=== PATIENT | male | born 1965 | race Caucasian/White ===

== ENCOUNTER 2017-08-13 16:16 | Inpatient (IN) | payer OTHER ==
[2017-08-13] MEDS ORDERED: ONDANSETRON 4 MG INJ IV (16:30)
[2017-08-13] MEDS ORDERED: ACETAMINOPHEN 325 MG TAB PO (16:30)
[2017-08-13] MEDS: morphine 4 MG/ML VIAL IV (16:44)
[2017-08-13] MEDS: ONDANSETRON 4 MG INJ IV (16:44)
[2017-08-13] MEDS ORDERED: VANCOMYCIN IV PER PHARMACY XX (17:30)
[2017-08-13] MEDS ORDERED: NACL 0.9% 3 ML SYG IV (17:30)
[2017-08-13 17:50] LABS: ADD MAN DIFF? NO
[2017-08-13] MEDS: PIPER-TAZO 3.375 GM IV (PMX) 100 ML IVPB (17:51)
[2017-08-13 17:53] LABS: WHITE BLOOD COUNT 8.7 10^3/ul (4.8-10.8)
[2017-08-13 17:53] LABS: BASOPHIL # 0.1 10^3/ul (0.0-0.1); BASOPHILS % 0.6 % (0.0-2.0); EOSINOPHILS # 0.3 10^3/ul (0.0-0.5); EOSINOPHILS % 3.7 % (0.0-7.0); HEMATOCRIT 38.5 % (42.0-52.0); HEMOGLOBIN 12.7 g/dl (14.0-18.0); LYMPHOCYTES # 2.1 10^3/ul (0.8-2.9); LYMPHOCYTES % 24.7 % (15.0-51.0); MEAN CORPUSCULAR HEMOGLOBIN 29.5 pg (29.0-33.0); MEAN CORPUSCULAR VOLUME 89.3 fl (82.0-101.0); MONOCYTE # 1.5 10^3/ul (0.3-0.9); NEUTROPHIL # 4.6 10^3/ul (1.6-7.5); NEUTROPHILS % 53.7 % (39.0-77.0); PLATELET COUNT 459 10^3/UL (140-415); RED BLOOD COUNT 4.31 10^6/ul (4.70-6.10); RED CELL DISTRIBUTION WIDTH 16.1 % (11.5-14.5)
[2017-08-13 18:15] LABS: ALANINE AMINOTRANSFERASE 28 IU/L (13-69); ALBUMIN 3.2 g/dl (3.3-4.9); ALKALINE PHOSPHATASE 79 IU/L (42-121); ANION GAP 12 (8-16); ASPARTATE AMINO TRANSFERASE 37 IU/L (15-46); BILIRUBIN,INDIRECT 0.3 mg/dl (0-1.1); BILIRUBIN,TOTAL 0.3 mg/dl (0.2-1.3); BLOOD UREA NITROGEN 15 mg/dl (7-20); CALCIUM 8.4 mg/dl (8.4-10.2); CARBON DIOXIDE 30 mmol/L (21-31); CHLORIDE 102 mmol/L (97-110); CREATININE 1.02 mg/dl (0.61-1.24); GLUCOSE 102 mg/dl (70-220); POTASSIUM 4.1 mmol/L (3.5-5.1); SODIUM 140 mmol/L (135-144); TOTAL PROTEIN 8.5 g/dl (6.1-8.1)
[2017-08-13 18:18] LABS: C-REACTIVE PROTEIN 4.1 mg/dl (0.0-0.9)
[2017-08-13] MEDS ORDERED: VANCOMYCIN 2 GM in DEXTROSE 5% 500 ML IVPB (18:30)
[2017-08-13 18:59] LABS: ERYTHROCYTE SEDIMENTATION RATE 33 mm/Hr (0-20)
[2017-08-13] MEDS ORDERED: SOD CHLORIDE 0.9% 100 ML (20:39)
[2017-08-13] MEDS ORDERED: IODIXANOL LOCM 100 ML BTL (20:39)
[2017-08-13] MEDS: GABAPENTIN 300 MG CAP PO (21:34)
[2017-08-13] MEDS: VANCOMYCIN 2 GM in SOD CHLORIDE 0.9% 500 ML IVPB (21:35)
[2017-08-13] MEDS: morphine 2 MG INJ IV (23:01)
[2017-08-14] MEDS ORDERED: PENDING SANTYL ORDER FOR WOUND CARE XX (00:30)
[2017-08-14] MEDS: PIPER-TAZO 3.375 GM IV (PMX) 100 ML IVPB ×4 (01:58→18:52)
[2017-08-14] MEDS ORDERED: COLLAGENASE 30 GM TUBE TOP (03:30)
[2017-08-14] MEDS: VANCOMYCIN 2 GM in SOD CHLORIDE 0.9% 500 ML IVPB ×2 (06:39→19:53)
[2017-08-14 06:49] LABS: ADD MAN DIFF? NO
[2017-08-14 06:53] LABS: BASOPHILS % 0.5 % (0.0-2.0); EOSINOPHILS # 0.4 10^3/ul (0.0-0.5); EOSINOPHILS % 4.2 % (0.0-7.0); MEAN CORPUSCULAR HEMOGLOBIN 29.3 pg (29.0-33.0); MEAN CORPUSCULAR HGB CONC 32.5 g/dl (32.0-37.0); MEAN CORPUSCULAR VOLUME 90.1 fl (82.0-101.0); MEAN PLATELET VOLUME 10.1 fl (7.4-10.4); MONOCYTE # 1.4 10^3/ul (0.3-0.9); NEUTROPHIL # 4.6 10^3/ul (1.6-7.5); NEUTROPHILS % 54.6 % (39.0-77.0); PLATELET COUNT 452 10^3/UL (140-415); RED BLOOD COUNT 4.44 10^6/ul (4.70-6.10); RED CELL DISTRIBUTION WIDTH 16.4 % (11.5-14.5)
[2017-08-14 06:53] LABS: WHITE BLOOD COUNT 8.4 10^3/ul (4.8-10.8)
[2017-08-14 07:04] LABS: MONOCYTES % 16.5 % (0.0-11.0)
[2017-08-14 07:07] LABS: ALANINE AMINOTRANSFERASE 29 IU/L (13-69); ALBUMIN 3.3 g/dl (3.3-4.9); ALKALINE PHOSPHATASE 81 IU/L (42-121); ANION GAP 14 (8-16); ASPARTATE AMINO TRANSFERASE 35 IU/L (15-46); BILIRUBIN,INDIRECT 0.4 mg/dl (0-1.1); BILIRUBIN,TOTAL 0.4 mg/dl (0.2-1.3); BLOOD UREA NITROGEN 13 mg/dl (7-20); CALCIUM 8.7 mg/dl (8.4-10.2); CARBON DIOXIDE 29 mmol/L (21-31); CHLORIDE 103 mmol/L (97-110); CREATININE 0.93 mg/dl (0.61-1.24); GLUCOSE 102 mg/dl (70-220); POTASSIUM 4.5 mmol/L (3.5-5.1); SODIUM 141 mmol/L (135-144); TOTAL PROTEIN 8.8 g/dl (6.1-8.1)
[2017-08-14] MEDS: GABAPENTIN 300 MG CAP PO ×2 (11:19→21:35)
[2017-08-14] MEDS: AMLODIPINE 10 MG TAB PO (11:19)
[2017-08-14] MEDS: LISINOPRIL 20 MG TAB PO (11:20)
[2017-08-14] MEDS: COLLAGENASE 30 GM TUBE TOP (11:21)
[2017-08-14] MEDS: ENOXAPARIN 40 MG/0.4 ML SYG SC (11:22)
[2017-08-14] MEDS: morphine 2 MG INJ IV ×2 (11:52→19:11)
[2017-08-14] MEDS: FUROSEMIDE 20 MG TAB PO (16:54)
[2017-08-15] MEDS: PIPER-TAZO 3.375 GM IV (PMX) 100 ML IVPB ×4 (00:45→18:48)
[2017-08-15] MEDS: morphine 2 MG INJ IV ×3 (00:50→22:46)
[2017-08-15] MEDS: VANCOMYCIN 2 GM in SOD CHLORIDE 0.9% 500 ML IVPB ×2 (06:00→20:17)
[2017-08-15 07:10] LABS: VANCOMYCIN,TROUGH 19.2 ug/ml (10.0-20.0)
[2017-08-15] MEDS: AMLODIPINE 10 MG TAB PO (09:21)
[2017-08-15] MEDS: GABAPENTIN 300 MG CAP PO ×2 (09:22→22:43)
[2017-08-15] MEDS: FUROSEMIDE 20 MG TAB PO (09:22)
[2017-08-15] MEDS: LISINOPRIL 20 MG TAB PO (09:22)
[2017-08-15] MEDS: ENOXAPARIN 40 MG/0.4 ML SYG SC (09:23)
[2017-08-15] MEDS: COLLAGENASE 30 GM TUBE TOP (09:38)
[2017-08-15] MEDS ORDERED: LIDOCAINE 1% (MDV) 20 ML INJ (20:45)
[2017-08-15] MEDS: LIDOCAINE 2% (MDV) 20 ML INJ INJ (21:44)
[2017-08-16] MEDS: PIPER-TAZO 3.375 GM IV (PMX) 100 ML IVPB ×3 (00:59→12:39)
[2017-08-16] MEDS: morphine 2 MG INJ IV ×3 (04:16→21:32)
[2017-08-16] MEDS: VANCOMYCIN 2 GM in SOD CHLORIDE 0.9% 500 ML IVPB (05:40)
[2017-08-16 05:41] LABS: BLOOD UREA NITROGEN 18 mg/dl (7-20)
[2017-08-16 05:41] LABS: CREATININE 0.98 mg/dl (0.61-1.24)
[2017-08-16] MEDS: ENOXAPARIN 40 MG/0.4 ML SYG SC (08:47)
[2017-08-16] MEDS: GABAPENTIN 300 MG CAP PO ×2 (08:47→20:13)
[2017-08-16] MEDS: FUROSEMIDE 20 MG TAB PO (08:48)
[2017-08-16] MEDS: LISINOPRIL 20 MG TAB PO (08:48)
[2017-08-16] MEDS: AMLODIPINE 10 MG TAB PO (08:48)
[2017-08-16] MEDS: COLLAGENASE 30 GM TUBE TOP (08:57)
[2017-08-16] MEDS: DOXYCYCLINE 100 MG TAB PO (20:13)
[2017-08-17] MEDS: morphine 2 MG INJ IV ×4 (03:16→22:16)
[2017-08-17] MEDS: AMLODIPINE 10 MG TAB PO (08:34)
[2017-08-17] MEDS: LISINOPRIL 20 MG TAB PO (08:34)
[2017-08-17] MEDS: FUROSEMIDE 20 MG TAB PO (08:34)
[2017-08-17] MEDS: GABAPENTIN 300 MG CAP PO ×2 (08:34→22:00)
[2017-08-17] MEDS: ENOXAPARIN 40 MG/0.4 ML SYG SC (08:36)
[2017-08-17] MEDS: DOXYCYCLINE 100 MG TAB PO ×2 (08:36→22:00)
[2017-08-17] MEDS: COLLAGENASE 30 GM TUBE TOP (08:41)
[2017-08-18] MEDS: morphine 2 MG INJ IV ×2 (08:24→16:23)
[2017-08-18] MEDS: ENOXAPARIN 40 MG/0.4 ML SYG SC (08:24)
[2017-08-18] MEDS: GABAPENTIN 300 MG CAP PO ×2 (08:25→23:15)
[2017-08-18] MEDS: DOXYCYCLINE 100 MG TAB PO ×2 (08:26→23:16)
[2017-08-18] MEDS: AMLODIPINE 10 MG TAB PO (08:26)
[2017-08-18] MEDS: LISINOPRIL 20 MG TAB PO (08:26)
[2017-08-18] MEDS: FUROSEMIDE 20 MG TAB PO (08:27)
[2017-08-18] MEDS: COLLAGENASE 30 GM TUBE TOP ×2 (08:37→09:00)
[2017-08-18] MEDS: morphine LIQ (10 MG/5 ML) CUP PO (23:20)
[2017-08-19] MEDS: GABAPENTIN 300 MG CAP PO ×2 (08:01→21:05)
[2017-08-19] MEDS: DOXYCYCLINE 100 MG TAB PO ×2 (08:01→21:05)
[2017-08-19] MEDS: FUROSEMIDE 20 MG TAB PO (08:01)
[2017-08-19] MEDS: AMLODIPINE 10 MG TAB PO (08:01)
[2017-08-19] MEDS: LISINOPRIL 20 MG TAB PO (08:01)
[2017-08-19] MEDS: ENOXAPARIN 40 MG/0.4 ML SYG SC (08:03)
[2017-08-19] MEDS: morphine LIQ (10 MG/5 ML) CUP PO ×2 (08:06→14:40)
[2017-08-19] MEDS: COLLAGENASE 30 GM TUBE TOP (09:00)
[2017-08-20] MEDS: AMLODIPINE 10 MG TAB PO (09:09)
[2017-08-20] MEDS: DOXYCYCLINE 100 MG TAB PO (09:09)
[2017-08-20] MEDS: GABAPENTIN 300 MG CAP PO (09:09)
[2017-08-20] MEDS: FUROSEMIDE 20 MG TAB PO (09:09)
[2017-08-20] MEDS: ENOXAPARIN 40 MG/0.4 ML SYG SC (09:10)
[2017-08-20] MEDS: COLLAGENASE 30 GM TUBE TOP (09:10)
[2017-08-20] MEDS: LISINOPRIL 20 MG TAB PO (09:10)
[2017-08-20] MEDS: morphine LIQ (10 MG/5 ML) CUP PO (09:24)
== END 2017-08-20 16:03 | disposition home or self-care (01) | DRG 593 ==
LOC: E/R 16:16 → PP2 16:32
DX: L97.929 Non-pressure chronic ulcer of unspecified part of left lower leg with unspecified severity (principal); L03.116 Cellulitis of left lower limb; L03.115 Cellulitis of right lower limb; L97.919 Non-pressure chronic ulcer of unspecified part of right lower leg with unspecified severity; I83.009 Varicose veins of unspecified lower extremity with ulcer of unspecified site; Z98.890 Other specified postprocedural states; E66.01 Morbid (severe) obesity due to excess calories; Z68.36 Body mass index [BMI] 36.0-36.9, adult; F17.210 Nicotine dependence, cigarettes, uncomplicated; Z87.81 Personal history of (healed) traumatic fracture; I10 Essential (primary) hypertension; M77.51 Other enthesopathy of right foot and ankle
CPT/HCPCS: 73700; 73718; 80053; 80202; 82565; 84520; 85025; 85651; 86140; 87070; 93306; 93922; 93970; 96365; 96375; 97162; 99285-25

== ENCOUNTER 2017-09-16 20:02 | Inpatient (IN) | payer OTHER ==
[2017-09-16] MEDS ORDERED: VANCOMYCIN IV PER PHARMACY XX (23:00)
[2017-09-16] MEDS ORDERED: PENDING SANTYL ORDER FOR WOUND CARE XX (23:30)
[2017-09-17] MEDS ORDERED: ZOLPIDEM 5 MG TAB PO (01:30)
[2017-09-17] MEDS ORDERED: ACETAMINOPHEN 325 MG TAB PO (01:30)
[2017-09-17] MEDS ORDERED: HYDROCODONE/APAP (5/325) TAB PO (01:30)
[2017-09-17] MEDS ORDERED: NACL 0.9% 3 ML SYG IV (01:30)
[2017-09-17] MEDS: VANCOMYCIN 2 GM in SOD CHLORIDE 0.9% 500 ML IVPB (01:45)
[2017-09-17 06:11] LABS: ADD MAN DIFF? NO
[2017-09-17 06:17] LABS: WHITE BLOOD COUNT 9.2 10^3/ul (4.8-10.8)
[2017-09-17 06:17] LABS: BASOPHIL # 0.1 10^3/ul (0.0-0.1); BASOPHILS % 0.8 % (0.0-2.0); EOSINOPHILS # 0.5 10^3/ul (0.0-0.5); EOSINOPHILS % 4.9 % (0.0-7.0); HEMOGLOBIN 13.4 g/dl (14.0-18.0); LYMPHOCYTES # 2.4 10^3/ul (0.8-2.9); LYMPHOCYTES % 26.1 % (15.0-51.0); MEAN CORPUSCULAR HEMOGLOBIN 29.1 pg (29.0-33.0); MEAN CORPUSCULAR HGB CONC 33.5 g/dl (32.0-37.0); MEAN CORPUSCULAR VOLUME 86.8 fl (82.0-101.0); MONOCYTE # 1.2 10^3/ul (0.3-0.9); MONOCYTES % 13.1 % (0.0-11.0); NEUTROPHILS % 54.7 % (39.0-77.0); PLATELET COUNT 548 10^3/UL (140-415); RED BLOOD COUNT 4.61 10^6/ul (4.70-6.10); RED CELL DISTRIBUTION WIDTH 16.9 % (11.5-14.5)
[2017-09-17] MEDS: morphine 2 MG INJ IV ×2 (06:35→21:33)
[2017-09-17 06:36] LABS: HEMOGLOBIN A1C 5.7 % (0-5.9)
[2017-09-17 07:12] LABS: ANION GAP 13 (8-16); BLOOD UREA NITROGEN 15 mg/dl (7-20); CALCIUM 9.3 mg/dl (8.4-10.2); CARBON DIOXIDE 27 mmol/L (21-31); CHLORIDE 105 mmol/L (97-110); CREATININE 0.94 mg/dl (0.61-1.24); GLUCOSE 105 mg/dl (70-220); MAGNESIUM 2.2 mg/dl (1.7-2.5); POTASSIUM 4.8 mmol/L (3.5-5.1); SODIUM 140 mmol/L (135-144)
[2017-09-17] MEDS: COLLAGENASE 30 GM TUBE TOP (09:22)
[2017-09-17] MEDS: GABAPENTIN 300 MG CAP PO ×2 (09:24→21:34)
[2017-09-17] MEDS: LISINOPRIL 20 MG TAB PO (09:25)
[2017-09-17] MEDS: AMLODIPINE 10 MG TAB PO (09:25)
[2017-09-17] MEDS: FUROSEMIDE 20 MG TAB PO (09:26)
[2017-09-17] MEDS: ENOXAPARIN 40 MG/0.4 ML SYG SC (09:30)
[2017-09-17] MEDS: VANCOMYCIN 1.75 GM in SOD CHLORIDE 0.9% 500 ML IVPB (12:20)
[2017-09-18] MEDS: VANCOMYCIN 1.75 GM in SOD CHLORIDE 0.9% 500 ML IVPB ×2 (00:35→12:00)
[2017-09-18] MEDS: AMLODIPINE 10 MG TAB PO (08:22)
[2017-09-18] MEDS: FUROSEMIDE 20 MG TAB PO (08:22)
[2017-09-18] MEDS: GABAPENTIN 300 MG CAP PO ×2 (08:22→20:17)
[2017-09-18] MEDS: LISINOPRIL 20 MG TAB PO (08:23)
[2017-09-18] MEDS: MUPIROCIN 2% 22 GM OINT TOP ×2 (08:24→22:17)
[2017-09-18] MEDS: COLLAGENASE 30 GM TUBE TOP (08:24)
[2017-09-18] MEDS: ENOXAPARIN 40 MG/0.4 ML SYG SC (08:29)
[2017-09-18] MEDS: morphine 2 MG INJ IV ×2 (11:11→18:31)
[2017-09-18 12:25] LABS: VANCOMYCIN,TROUGH 22.5 ug/ml (10.0-20.0)
[2017-09-18] MEDS: VANCOMYCIN 1.25 GM in SOD CHLORIDE 0.9% 250 ML IVPB (20:18)
[2017-09-19] MEDS: VANCOMYCIN 1.25 GM in SOD CHLORIDE 0.9% 250 ML IVPB ×2 (09:42→20:17)
[2017-09-19] MEDS: GABAPENTIN 300 MG CAP PO ×2 (09:42→20:13)
[2017-09-19] MEDS: LISINOPRIL 20 MG TAB PO (09:42)
[2017-09-19] MEDS: AMLODIPINE 10 MG TAB PO (09:42)
[2017-09-19] MEDS: FUROSEMIDE 20 MG TAB PO (09:42)
[2017-09-19] MEDS: ENOXAPARIN 40 MG/0.4 ML SYG SC (09:43)
[2017-09-19] MEDS: COLLAGENASE 30 GM TUBE TOP (09:43)
[2017-09-19] MEDS: MUPIROCIN 2% 22 GM OINT TOP ×2 (09:44→20:15)
[2017-09-19] MEDS: morphine 2 MG INJ IV ×2 (12:54→20:12)
[2017-09-20] MEDS: VANCOMYCIN 1.25 GM in SOD CHLORIDE 0.9% 250 ML IVPB ×2 (09:13→20:44)
[2017-09-20] MEDS: DOCUSATE SODIUM 100 MG CAP PO (09:13)
[2017-09-20] MEDS: ENOXAPARIN 40 MG/0.4 ML SYG SC (09:14)
[2017-09-20] MEDS: GABAPENTIN 300 MG CAP PO ×2 (09:14→20:43)
[2017-09-20] MEDS: COLLAGENASE 30 GM TUBE TOP (09:14)
[2017-09-20] MEDS: LISINOPRIL 20 MG TAB PO (09:15)
[2017-09-20] MEDS: FUROSEMIDE 20 MG TAB PO (09:15)
[2017-09-20] MEDS: AMLODIPINE 10 MG TAB PO (09:16)
[2017-09-20] MEDS: MUPIROCIN 2% 22 GM OINT TOP ×2 (09:16→20:44)
[2017-09-20] MEDS: morphine 2 MG INJ IV ×3 (09:25→23:09)
[2017-09-20 09:43] LABS: BLOOD UREA NITROGEN 24 mg/dl (7-20)
[2017-09-20 09:46] LABS: VANCOMYCIN,TROUGH 14.4 ug/ml (10.0-20.0)
[2017-09-21 06:02] LABS: ADD MAN DIFF? NO
[2017-09-21 06:05] LABS: WHITE BLOOD COUNT 9.1 10^3/ul (4.8-10.8)
[2017-09-21 06:05] LABS: BASOPHIL # 0.1 10^3/ul (0.0-0.1); BASOPHILS % 0.9 % (0.0-2.0); EOSINOPHILS # 0.3 10^3/ul (0.0-0.5); EOSINOPHILS % 3.6 % (0.0-7.0); HEMATOCRIT 47.2 % (42.0-52.0); HEMOGLOBIN 15.3 g/dl (14.0-18.0); LYMPHOCYTES # 2.6 10^3/ul (0.8-2.9); LYMPHOCYTES % 28.8 % (15.0-51.0); MEAN CORPUSCULAR HGB CONC 32.4 g/dl (32.0-37.0); MEAN CORPUSCULAR VOLUME 89.4 fl (82.0-101.0); MEAN PLATELET VOLUME 10.3 fl (7.4-10.4); MONOCYTE # 1.2 10^3/ul (0.3-0.9); NEUTROPHIL # 4.8 10^3/ul (1.6-7.5); NEUTROPHILS % 52.9 % (39.0-77.0); PLATELET COUNT 580 10^3/UL (140-415); RED BLOOD COUNT 5.28 10^6/ul (4.70-6.10); RED CELL DISTRIBUTION WIDTH 17.2 % (11.5-14.5)
[2017-09-21 06:20] LABS: ANION GAP 15 (8-16); BLOOD UREA NITROGEN 24 mg/dl (7-20); CARBON DIOXIDE 27 mmol/L (21-31); CHLORIDE 105 mmol/L (97-110); CREATININE 1.13 mg/dl (0.61-1.24); GLUCOSE 109 mg/dl (70-220); POTASSIUM 4.7 mmol/L (3.5-5.1); SODIUM 142 mmol/L (135-144)
[2017-09-21] MEDS: GABAPENTIN 300 MG CAP PO ×2 (08:38→20:58)
[2017-09-21] MEDS: AMLODIPINE 10 MG TAB PO (08:39)
[2017-09-21] MEDS: LISINOPRIL 20 MG TAB PO (08:39)
[2017-09-21] MEDS: FUROSEMIDE 20 MG TAB PO (08:39)
[2017-09-21] MEDS: MUPIROCIN 2% 22 GM OINT TOP ×2 (08:40→21:00)
[2017-09-21] MEDS: ENOXAPARIN 40 MG/0.4 ML SYG SC (08:40)
[2017-09-21] MEDS: VANCOMYCIN 1.25 GM in SOD CHLORIDE 0.9% 250 ML IVPB ×2 (08:40→20:58)
[2017-09-21] MEDS: COLLAGENASE 30 GM TUBE TOP (08:41)
[2017-09-21] MEDS: morphine 2 MG INJ IV ×3 (17:25→22:44)
[2017-09-22] MEDS: COLLAGENASE 30 GM TUBE TOP (09:00)
[2017-09-22] MEDS: VANCOMYCIN 1.25 GM in SOD CHLORIDE 0.9% 250 ML IVPB ×2 (09:25→20:28)
[2017-09-22] MEDS: LISINOPRIL 20 MG TAB PO (09:25)
[2017-09-22] MEDS: GABAPENTIN 300 MG CAP PO ×2 (09:25→20:28)
[2017-09-22] MEDS: FUROSEMIDE 20 MG TAB PO (09:25)
[2017-09-22] MEDS: AMLODIPINE 10 MG TAB PO (09:25)
[2017-09-22] MEDS: MUPIROCIN 2% 22 GM OINT TOP ×2 (09:26→20:29)
[2017-09-22] MEDS: ENOXAPARIN 40 MG/0.4 ML SYG SC (09:28)
[2017-09-22] MEDS: morphine 2 MG INJ IV ×2 (17:37→23:38)
[2017-09-23] MEDS: GABAPENTIN 300 MG CAP PO ×2 (08:27→22:10)
[2017-09-23] MEDS: ENOXAPARIN 40 MG/0.4 ML SYG SC (08:27)
[2017-09-23] MEDS: AMLODIPINE 10 MG TAB PO (08:27)
[2017-09-23] MEDS: LISINOPRIL 20 MG TAB PO (08:28)
[2017-09-23] MEDS: FUROSEMIDE 20 MG TAB PO (08:28)
[2017-09-23] MEDS: morphine 2 MG INJ IV ×3 (08:33→22:07)
[2017-09-23] MEDS: COLLAGENASE 30 GM TUBE TOP (09:00)
[2017-09-23 09:37] LABS: VANCOMYCIN,TROUGH 15.4 ug/ml (10.0-20.0)
[2017-09-23] MEDS: VANCOMYCIN 1.25 GM in SOD CHLORIDE 0.9% 250 ML IVPB ×2 (10:25→22:21)
[2017-09-23] MEDS: RIFAMPIN 300 MG CAP PO (16:36)
[2017-09-23] MEDS: MUPIROCIN 2% 22 GM OINT TOP (22:09)
[2017-09-24] MEDS: morphine 2 MG INJ IV ×3 (04:21→20:55)
[2017-09-24 07:23] LABS: BLOOD UREA NITROGEN 30 mg/dl (7-20)
[2017-09-24] MEDS ORDERED: FENTAnyl 50 MCG/ML VIAL (08:18)
[2017-09-24] MEDS ORDERED: LIDOCAINE 100 MG SYRINGE (08:26)
[2017-09-24] MEDS ORDERED: PROPOFOL 20 ML (08:26)
[2017-09-24] MEDS: POLYMYXIN/BACITRACIN 1L IRRIG IRR (08:43)
[2017-09-24] MEDS: LIDOCAINE 2% (MDV) 20 ML INJ (08:43)
[2017-09-24] MEDS: BUPIVACAINE 0.5% (SDV) 30 ML INJ (08:44)
[2017-09-24] MEDS ORDERED: METOCLOPRAMIDE 10 MG INJ IV (09:00)
[2017-09-24] MEDS: ENOXAPARIN 40 MG/0.4 ML SYG SC (09:00)
[2017-09-24] MEDS ORDERED: FENTAnyl 50 MCG/ML VIAL IV (09:00)
[2017-09-24] MEDS ORDERED: DIPHENHYDRAMINE 50 MG INJ IV (09:00)
[2017-09-24] MEDS ORDERED: ONDANSETRON 4 MG INJ IV (09:00)
[2017-09-24] MEDS: ONDANSETRON 4 MG INJ IV (09:18)
[2017-09-24] MEDS: MEPERIDINE 25 MG INJ IV (09:19)
[2017-09-24] MEDS ORDERED: POLYMYXIN/BACITRACIN 1L IRRIG (09:31)
[2017-09-24] MEDS: FENTAnyl 50 MCG/ML VIAL IV (10:05)
[2017-09-24] MEDS: VANCOMYCIN 1.25 GM in SOD CHLORIDE 0.9% 250 ML IVPB ×2 (10:28→20:54)
[2017-09-24] MEDS: GABAPENTIN 300 MG CAP PO ×2 (10:30→20:54)
[2017-09-24] MEDS: FUROSEMIDE 20 MG TAB PO (10:30)
[2017-09-24] MEDS: RIFAMPIN 300 MG CAP PO (10:30)
[2017-09-24] MEDS: LISINOPRIL 20 MG TAB PO (10:31)
[2017-09-24] MEDS: AMLODIPINE 10 MG TAB PO (10:31)
[2017-09-24] MEDS: COLLAGENASE 30 GM TUBE TOP (10:32)
[2017-09-24] MEDS: MUPIROCIN 2% 22 GM OINT TOP ×2 (10:33→20:54)
[2017-09-25] MEDS: morphine 2 MG INJ IV ×5 (00:58→23:55)
[2017-09-25] MEDS: VANCOMYCIN 1.25 GM in SOD CHLORIDE 0.9% 250 ML IVPB ×2 (09:27→19:53)
[2017-09-25] MEDS: LISINOPRIL 20 MG TAB PO (09:28)
[2017-09-25] MEDS: FUROSEMIDE 20 MG TAB PO (09:28)
[2017-09-25] MEDS: GABAPENTIN 300 MG CAP PO ×2 (09:28→19:50)
[2017-09-25] MEDS: RIFAMPIN 300 MG CAP PO (09:29)
[2017-09-25] MEDS: AMLODIPINE 10 MG TAB PO (09:29)
[2017-09-25] MEDS: ENOXAPARIN 40 MG/0.4 ML SYG SC (09:31)
[2017-09-25] MEDS: MUPIROCIN 2% 22 GM OINT TOP ×2 (09:38→19:50)
[2017-09-25] MEDS: COLLAGENASE 30 GM TUBE TOP (09:38)
[2017-09-26 05:51] LABS: ADD MAN DIFF? NO
[2017-09-26 05:55] LABS: WHITE BLOOD COUNT 7.8 10^3/ul (4.8-10.8)
[2017-09-26 05:55] LABS: BASOPHIL # 0.1 10^3/ul (0.0-0.1); BASOPHILS % 1.5 % (0.0-2.0); EOSINOPHILS # 0.5 10^3/ul (0.0-0.5); EOSINOPHILS % 6.8 % (0.0-7.0); HEMATOCRIT 39.4 % (42.0-52.0); HEMOGLOBIN 13.1 g/dl (14.0-18.0); LYMPHOCYTES # 3.2 10^3/ul (0.8-2.9); LYMPHOCYTES % 41.5 % (15.0-51.0); MEAN CORPUSCULAR HEMOGLOBIN 29.4 pg (29.0-33.0); MEAN CORPUSCULAR HGB CONC 33.2 g/dl (32.0-37.0); MEAN CORPUSCULAR VOLUME 88.5 fl (82.0-101.0); MEAN PLATELET VOLUME 11.5 fl (7.4-10.4); MONOCYTE # 1.4 10^3/ul (0.3-0.9); MONOCYTES % 17.4 % (0.0-11.0); NEUTROPHIL # 2.5 10^3/ul (1.6-7.5); NEUTROPHILS % 32.4 % (39.0-77.0); PLATELET COUNT 471 10^3/UL (140-415); RED BLOOD COUNT 4.45 10^6/ul (4.70-6.10); RED CELL DISTRIBUTION WIDTH 17.3 % (11.5-14.5)
[2017-09-26 06:19] LABS: ANION GAP 13 (8-16); BLOOD UREA NITROGEN 22 mg/dl (7-20); CALCIUM 9.5 mg/dl (8.4-10.2); CARBON DIOXIDE 27 mmol/L (21-31); CHLORIDE 103 mmol/L (97-110); GLUCOSE 107 mg/dl (70-220); POTASSIUM 4.3 mmol/L (3.5-5.1); SODIUM 139 mmol/L (135-144)
[2017-09-26] MEDS: RIFAMPIN 300 MG CAP PO (09:08)
[2017-09-26] MEDS: AMLODIPINE 10 MG TAB PO (09:09)
[2017-09-26] MEDS: GABAPENTIN 300 MG CAP PO ×2 (09:09→21:44)
[2017-09-26] MEDS: LISINOPRIL 20 MG TAB PO (09:09)
[2017-09-26] MEDS: morphine 2 MG INJ IV ×3 (09:09→21:53)
[2017-09-26] MEDS: FUROSEMIDE 20 MG TAB PO (09:09)
[2017-09-26] MEDS: COLLAGENASE 30 GM TUBE TOP (09:11)
[2017-09-26] MEDS: MUPIROCIN 2% 22 GM OINT TOP ×2 (09:11→21:45)
[2017-09-26] MEDS: ENOXAPARIN 40 MG/0.4 ML SYG SC (09:20)
[2017-09-26 09:22] LABS: VANCOMYCIN,TROUGH 13.4 ug/ml (10.0-20.0)
[2017-09-26] MEDS: VANCOMYCIN 1.25 GM in SOD CHLORIDE 0.9% 250 ML IVPB ×2 (09:47→21:44)
[2017-09-27] MEDS: morphine 2 MG INJ IV ×4 (07:51→23:56)
[2017-09-27] MEDS: RIFAMPIN 300 MG CAP PO (08:56)
[2017-09-27] MEDS: GABAPENTIN 300 MG CAP PO ×2 (08:56→20:42)
[2017-09-27] MEDS: ENOXAPARIN 40 MG/0.4 ML SYG SC (08:56)
[2017-09-27] MEDS: FUROSEMIDE 20 MG TAB PO (08:56)
[2017-09-27] MEDS: VANCOMYCIN 1.25 GM in SOD CHLORIDE 0.9% 250 ML IVPB ×2 (08:56→20:42)
[2017-09-27] MEDS: LISINOPRIL 20 MG TAB PO (08:57)
[2017-09-27] MEDS: AMLODIPINE 10 MG TAB PO (08:57)
[2017-09-27] MEDS: COLLAGENASE 30 GM TUBE TOP (09:01)
[2017-09-27] MEDS: MUPIROCIN 2% 22 GM OINT TOP ×2 (09:01→20:43)
[2017-09-28] MEDS: GABAPENTIN 300 MG CAP PO ×2 (08:53→20:48)
[2017-09-28] MEDS: morphine 2 MG INJ IV ×3 (08:53→19:52)
[2017-09-28] MEDS: VANCOMYCIN 1.25 GM in SOD CHLORIDE 0.9% 250 ML IVPB ×2 (08:53→20:48)
[2017-09-28] MEDS: RIFAMPIN 300 MG CAP PO (08:54)
[2017-09-28] MEDS: LISINOPRIL 20 MG TAB PO (08:54)
[2017-09-28] MEDS: AMLODIPINE 10 MG TAB PO (08:54)
[2017-09-28] MEDS: FUROSEMIDE 20 MG TAB PO (08:55)
[2017-09-28] MEDS: COLLAGENASE 30 GM TUBE TOP ×2 (08:56→09:00)
[2017-09-28] MEDS: MUPIROCIN 2% 22 GM OINT TOP ×2 (08:56→20:50)
[2017-09-28] MEDS: ENOXAPARIN 40 MG/0.4 ML SYG SC (08:56)
[2017-09-29 06:46] LABS: ADD MAN DIFF? NO
[2017-09-29 06:49] LABS: BASOPHIL # 0.1 10^3/ul (0.0-0.1); BASOPHILS % 1.9 % (0.0-2.0); EOSINOPHILS # 0.5 10^3/ul (0.0-0.5); HEMATOCRIT 41.3 % (42.0-52.0); HEMOGLOBIN 13.5 g/dl (14.0-18.0); LYMPHOCYTES # 2.6 10^3/ul (0.8-2.9); LYMPHOCYTES % 36.6 % (15.0-51.0); MEAN CORPUSCULAR HEMOGLOBIN 29.3 pg (29.0-33.0); MEAN CORPUSCULAR HGB CONC 32.7 g/dl (32.0-37.0); MEAN CORPUSCULAR VOLUME 89.6 fl (82.0-101.0); MEAN PLATELET VOLUME 11.2 fl (7.4-10.4); MONOCYTE # 1.2 10^3/ul (0.3-0.9); MONOCYTES % 16.8 % (0.0-11.0); NEUTROPHIL # 2.6 10^3/ul (1.6-7.5); NEUTROPHILS % 37.4 % (39.0-77.0); PLATELET COUNT 466 10^3/UL (140-415); RED BLOOD COUNT 4.61 10^6/ul (4.70-6.10); RED CELL DISTRIBUTION WIDTH 17.2 % (11.5-14.5)
[2017-09-29 07:28] LABS: INR 0.93; PROTIME 12.6 Sec (11.9-14.9)
[2017-09-29 07:39] LABS: ALANINE AMINOTRANSFERASE 52 IU/L (13-69); ALBUMIN 3.7 g/dl (3.3-4.9); ALBUMIN/GLOBULIN RATIO 0.71; ALKALINE PHOSPHATASE 75 IU/L (42-121); ANION GAP 13 (8-16); ASPARTATE AMINO TRANSFERASE 48 IU/L (15-46); BILIRUBIN,INDIRECT 0.1 mg/dl (0-1.1); BILIRUBIN,TOTAL 0.1 mg/dl (0.2-1.3); BLOOD UREA NITROGEN 27 mg/dl (7-20); CARBON DIOXIDE 30 mmol/L (21-31); CHLORIDE 102 mmol/L (97-110); CREATININE 0.91 mg/dl (0.61-1.24); GLUCOSE 111 mg/dl (70-220); POTASSIUM 4.4 mmol/L (3.5-5.1); SODIUM 141 mmol/L (135-144); TOTAL PROTEIN 8.9 g/dl (6.1-8.1)
[2017-09-29] MEDS: morphine 2 MG INJ IV ×2 (08:46→13:01)
[2017-09-29] MEDS: ENOXAPARIN 40 MG/0.4 ML SYG SC (08:48)
[2017-09-29] MEDS: AMLODIPINE 10 MG TAB PO (08:49)
[2017-09-29] MEDS: RIFAMPIN 300 MG CAP PO (08:49)
[2017-09-29] MEDS: FUROSEMIDE 20 MG TAB PO (08:50)
[2017-09-29] MEDS: VANCOMYCIN 1.25 GM in SOD CHLORIDE 0.9% 250 ML IVPB (08:50)
[2017-09-29] MEDS: LISINOPRIL 20 MG TAB PO (08:50)
[2017-09-29] MEDS: GABAPENTIN 300 MG CAP PO (08:50)
[2017-09-29] MEDS: COLLAGENASE 30 GM TUBE TOP (08:51)
[2017-09-29] MEDS: MUPIROCIN 2% 22 GM OINT TOP (08:53)
== END 2017-09-29 18:10 | disposition home or self-care (01) | DRG 580 ==
LOC: PP2 20:02
PROC: 0J9Q0ZZ Drainage of Right Foot Subcutaneous Tissue and Fascia, Open Approach (ICD-10-PCS; principal; 2017-09-24 07:30)
PROC: 0M9 Bursae and Ligaments, Drainage (ICD-10-PCS; 2017-09-24 07:30)
DX: L02.611 Cutaneous abscess of right foot (principal); L97.819 Non-pressure chronic ulcer of other part of right lower leg with unspecified severity; L03.116 Cellulitis of left lower limb; L03.115 Cellulitis of right lower limb; L97.829 Non-pressure chronic ulcer of other part of left lower leg with unspecified severity; I83.018 Varicose veins of right lower extremity with ulcer other part of lower leg; I83.028 Varicose veins of left lower extremity with ulcer other part of lower leg; I10 Essential (primary) hypertension; E66.01 Morbid (severe) obesity due to excess calories; M77.51 Other enthesopathy of right foot and ankle; Z22.322 Carrier or suspected carrier of Methicillin resistant Staphylococcus aureus; Z68.36 Body mass index [BMI] 36.0-36.9, adult; Z59.0 Homelessness
CPT/HCPCS: 71045; 73630; 73718; 80048; 80053; 80202; 82565; 83036; 83735; 84520; 85025; 85610; 85730; 87070; 87075; 87081; 88304; 97162

== ENCOUNTER 2017-10-11 17:55 | Inpatient (IN) | payer OTHER ==
[2017-10-11] MEDS ORDERED: ZOLPIDEM 5 MG TAB PO (19:00)
[2017-10-11] MEDS ORDERED: IBUPROFEN 600 MG TAB PO (19:00)
[2017-10-11] MEDS ORDERED: NACL 0.9% 3 ML SYG IV (19:00)
[2017-10-11] MEDS: FUROSEMIDE 20 MG INJ IV (21:03)
[2017-10-12] MEDS: FUROSEMIDE 20 MG INJ IV ×2 (05:52→17:43)
[2017-10-12 06:04] LABS: ADD MAN DIFF? NO
[2017-10-12 06:08] LABS: WHITE BLOOD COUNT 9.6 10^3/ul (4.8-10.8)
[2017-10-12 06:08] LABS: BASOPHIL # 0.1 10^3/ul (0.0-0.1); BASOPHILS % 0.6 % (0.0-2.0); EOSINOPHILS # 0.9 10^3/ul (0.0-0.5); EOSINOPHILS % 9.1 % (0.0-7.0); HEMATOCRIT 36.8 % (42.0-52.0); HEMOGLOBIN 12.2 g/dl (14.0-18.0); LYMPHOCYTES # 2.1 10^3/ul (0.8-2.9); LYMPHOCYTES % 22.3 % (15.0-51.0); MEAN CORPUSCULAR HEMOGLOBIN 29.7 pg (29.0-33.0); MEAN CORPUSCULAR HGB CONC 33.2 g/dl (32.0-37.0); MEAN CORPUSCULAR VOLUME 89.5 fl (82.0-101.0); MEAN PLATELET VOLUME 10.8 fl (7.4-10.4); MONOCYTE # 1.3 10^3/ul (0.3-0.9); MONOCYTES % 13.6 % (0.0-11.0); NEUTROPHIL # 5.2 10^3/ul (1.6-7.5); NEUTROPHILS % 54.1 % (39.0-77.0); PLATELET COUNT 371 10^3/UL (140-415); RED BLOOD COUNT 4.11 10^6/ul (4.70-6.10); RED CELL DISTRIBUTION WIDTH 17.3 % (11.5-14.5)
[2017-10-12 06:35] LABS: ALANINE AMINOTRANSFERASE 32 IU/L (13-69); ALBUMIN 3.3 g/dl (3.3-4.9); ALBUMIN/GLOBULIN RATIO 0.73; ALKALINE PHOSPHATASE 73 IU/L (42-121); ANION GAP 10 (8-16); ASPARTATE AMINO TRANSFERASE 31 IU/L (15-46); BILIRUBIN,INDIRECT 0.1 mg/dl (0-1.1); BILIRUBIN,TOTAL 0.1 mg/dl (0.2-1.3); BLOOD UREA NITROGEN 17 mg/dl (7-20); CALCIUM 8.7 mg/dl (8.4-10.2); CARBON DIOXIDE 30 mmol/L (21-31); CHLORIDE 107 mmol/L (97-110); CREATININE 1.04 mg/dl (0.61-1.24); GLUCOSE 97 mg/dl (70-220); POTASSIUM 4.3 mmol/L (3.5-5.1); SODIUM 143 mmol/L (135-144); TOTAL PROTEIN 7.8 g/dl (6.1-8.1)
[2017-10-12] MEDS: LISINOPRIL 20 MG TAB PO (08:39)
[2017-10-12] MEDS: HYDROCODONE/APAP (5/325) TAB PO ×2 (08:39→22:20)
[2017-10-12] MEDS: ENOXAPARIN 40 MG/0.4 ML SYG SC (08:43)
[2017-10-13] MEDS: FUROSEMIDE 20 MG INJ IV ×2 (06:18→18:29)
[2017-10-13] MEDS: LISINOPRIL 20 MG TAB PO (09:20)
[2017-10-13] MEDS: ENOXAPARIN 40 MG/0.4 ML SYG SC (09:21)
[2017-10-13] MEDS: HYDROCODONE/APAP (5/325) TAB PO (11:02)
[2017-10-13] MEDS ORDERED: ACETAMINOPHEN 325 MG TAB PO (13:00)
[2017-10-13] MEDS ORDERED: VANCOMYCIN IV PER PHARMACY XX (13:00)
[2017-10-13] MEDS: morphine 2 MG INJ IV ×2 (13:18→18:29)
[2017-10-13] MEDS: VANCOMYCIN 2 GM in SOD CHLORIDE 0.9% 500 ML IVPB (15:59)
[2017-10-13] MEDS: SILVER SULFADIAZINE 1% 25 GM CR TOP (16:13)
[2017-10-14] MEDS: VANCOMYCIN 1.25 GM in SOD CHLORIDE 0.9% 250 ML IVPB ×2 (03:20→15:15)
[2017-10-14 05:52] LABS: ADD MAN DIFF? NO
[2017-10-14 06:01] LABS: WHITE BLOOD COUNT 9.2 10^3/ul (4.8-10.8)
[2017-10-14 06:01] LABS: BASOPHIL # 0.1 10^3/ul (0.0-0.1); BASOPHILS % 0.5 % (0.0-2.0); EOSINOPHILS # 0.7 10^3/ul (0.0-0.5); EOSINOPHILS % 7.1 % (0.0-7.0); HEMATOCRIT 39.8 % (42.0-52.0); HEMOGLOBIN 13.1 g/dl (14.0-18.0); LYMPHOCYTES # 2.7 10^3/ul (0.8-2.9); LYMPHOCYTES % 29.4 % (15.0-51.0); MEAN CORPUSCULAR HEMOGLOBIN 29.7 pg (29.0-33.0); MEAN CORPUSCULAR HGB CONC 32.9 g/dl (32.0-37.0); MEAN CORPUSCULAR VOLUME 90.2 fl (82.0-101.0); MEAN PLATELET VOLUME 10.8 fl (7.4-10.4); MONOCYTE # 1.3 10^3/ul (0.3-0.9); MONOCYTES % 14.1 % (0.0-11.0); NEUTROPHIL # 4.5 10^3/ul (1.6-7.5); NEUTROPHILS % 48.7 % (39.0-77.0); PLATELET COUNT 399 10^3/UL (140-415); RED BLOOD COUNT 4.41 10^6/ul (4.70-6.10); RED CELL DISTRIBUTION WIDTH 17.5 % (11.5-14.5)
[2017-10-14] MEDS: FUROSEMIDE 20 MG INJ IV ×2 (06:09→17:55)
[2017-10-14 06:25] LABS: ANION GAP 10 (8-16); BLOOD UREA NITROGEN 24 mg/dl (7-20); CALCIUM 9.2 mg/dl (8.4-10.2); CARBON DIOXIDE 34 mmol/L (21-31); CHLORIDE 103 mmol/L (97-110); CREATININE 1.04 mg/dl (0.61-1.24); GLUCOSE 98 mg/dl (70-220); MAGNESIUM 1.9 mg/dl (1.7-2.5); PHOSPHORUS 4.2 mg/dl (2.5-4.9); POTASSIUM 4.5 mmol/L (3.5-5.1); SODIUM 142 mmol/L (135-144)
[2017-10-14] MEDS: LISINOPRIL 20 MG TAB PO (08:46)
[2017-10-14] MEDS: ENOXAPARIN 40 MG/0.4 ML SYG SC (08:47)
[2017-10-14] MEDS: SILVER SULFADIAZINE 1% 25 GM CR TOP (08:48)
[2017-10-14] MEDS: morphine 2 MG INJ IV (12:46)
[2017-10-14] MEDS: morphine LIQ (10 MG/5 ML) CUP PO (18:04)
[2017-10-15 03:21] LABS: VANCOMYCIN,TROUGH 13.3 ug/ml (10.0-20.0)
[2017-10-15] MEDS: VANCOMYCIN 1.25 GM in SOD CHLORIDE 0.9% 250 ML IVPB ×2 (03:34→15:33)
[2017-10-15] MEDS: FUROSEMIDE 20 MG INJ IV ×2 (05:31→17:55)
[2017-10-15 06:07] LABS: ADD MAN DIFF? NO
[2017-10-15 06:10] LABS: BASOPHIL # 0.1 10^3/ul (0.0-0.1); BASOPHILS % 0.7 % (0.0-2.0); EOSINOPHILS # 0.6 10^3/ul (0.0-0.5); EOSINOPHILS % 5.9 % (0.0-7.0); HEMATOCRIT 41.3 % (42.0-52.0); HEMOGLOBIN 13.5 g/dl (14.0-18.0); LYMPHOCYTES # 2.6 10^3/ul (0.8-2.9); LYMPHOCYTES % 27.3 % (15.0-51.0); MEAN CORPUSCULAR HEMOGLOBIN 29.1 pg (29.0-33.0); MEAN CORPUSCULAR HGB CONC 32.7 g/dl (32.0-37.0); MEAN PLATELET VOLUME 10.4 fl (7.4-10.4); MONOCYTE # 1.3 10^3/ul (0.3-0.9); MONOCYTES % 13.4 % (0.0-11.0); NEUTROPHILS % 52.3 % (39.0-77.0); PLATELET COUNT 413 10^3/UL (140-415); RED BLOOD COUNT 4.64 10^6/ul (4.70-6.10); RED CELL DISTRIBUTION WIDTH 17.7 % (11.5-14.5)
[2017-10-15 06:10] LABS: WHITE BLOOD COUNT 9.6 10^3/ul (4.8-10.8)
[2017-10-15 06:39] LABS: ANION GAP 15 (8-16); BLOOD UREA NITROGEN 29 mg/dl (7-20); CALCIUM 9.3 mg/dl (8.4-10.2); CARBON DIOXIDE 29 mmol/L (21-31); CHLORIDE 105 mmol/L (97-110); GLUCOSE 105 mg/dl (70-220); MAGNESIUM 1.8 mg/dl (1.7-2.5); PHOSPHORUS 4.3 mg/dl (2.5-4.9); POTASSIUM 4.3 mmol/L (3.5-5.1); SODIUM 145 mmol/L (135-144)
[2017-10-15] MEDS: SILVER SULFADIAZINE 1% 25 GM CR TOP (09:18)
[2017-10-15] MEDS: LISINOPRIL 20 MG TAB PO (09:19)
[2017-10-15] MEDS: ENOXAPARIN 40 MG/0.4 ML SYG SC (09:21)
[2017-10-15] MEDS: morphine LIQ (10 MG/5 ML) CUP PO ×2 (09:29→17:54)
[2017-10-16] MEDS: VANCOMYCIN 1.25 GM in SOD CHLORIDE 0.9% 250 ML IVPB (03:16)
[2017-10-16] MEDS: FUROSEMIDE 20 MG INJ IV (05:45)
[2017-10-16 05:50] LABS: ADD MAN DIFF? NO
[2017-10-16 05:53] LABS: ABNORMAL IP MESSAGE 1; BASOPHIL # 0.1 10^3/ul (0.0-0.1); BASOPHILS % 0.7 % (0.0-2.0); EOSINOPHILS # 0.6 10^3/ul (0.0-0.5); EOSINOPHILS % 5.7 % (0.0-7.0); HEMATOCRIT 41.2 % (42.0-52.0); HEMOGLOBIN 13.4 g/dl (14.0-18.0); LYMPHOCYTES % 27.5 % (15.0-51.0); MEAN CORPUSCULAR HEMOGLOBIN 29.1 pg (29.0-33.0); MEAN CORPUSCULAR HGB CONC 32.5 g/dl (32.0-37.0); MEAN CORPUSCULAR VOLUME 89.6 fl (82.0-101.0); MEAN PLATELET VOLUME 10.3 fl (7.4-10.4); MONOCYTE # 1.6 10^3/ul (0.3-0.9); MONOCYTES % 14.8 % (0.0-11.0); NEUTROPHIL # 5.6 10^3/ul (1.6-7.5); NEUTROPHILS % 50.9 % (39.0-77.0); PLATELET COUNT 404 10^3/UL (140-415); POSITIVE DIFF @See below; RED CELL DISTRIBUTION WIDTH 17.7 % (11.5-14.5)
[2017-10-16 05:53] LABS: WHITE BLOOD COUNT 11.1 10^3/ul (4.8-10.8)
[2017-10-16 06:14] LABS: ANION GAP 15 (8-16); BLOOD UREA NITROGEN 31 mg/dl (7-20); CALCIUM 9.1 mg/dl (8.4-10.2); CARBON DIOXIDE 27 mmol/L (21-31); CHLORIDE 106 mmol/L (97-110); GLUCOSE 101 mg/dl (70-220); POTASSIUM 4.2 mmol/L (3.5-5.1); SODIUM 144 mmol/L (135-144)
[2017-10-16] MEDS: LISINOPRIL 20 MG TAB PO (08:59)
[2017-10-16] MEDS: ENOXAPARIN 40 MG/0.4 ML SYG SC (09:00)
[2017-10-16] MEDS: morphine LIQ (10 MG/5 ML) CUP PO (10:58)
== END 2017-10-16 16:40 | disposition home health service (06) | DRG 300 ==
LOC: MS2 17:55
DX: I83.218 Varicose veins of right lower extremity with both ulcer of other part of lower extremity and inflammation (principal); L97.811 Non-pressure chronic ulcer of other part of right lower leg limited to breakdown of skin; L97.821 Non-pressure chronic ulcer of other part of left lower leg limited to breakdown of skin; L03.116 Cellulitis of left lower limb; L03.115 Cellulitis of right lower limb; I83.228 Varicose veins of left lower extremity with both ulcer of other part of lower extremity and inflammation; I10 Essential (primary) hypertension; E66.9 Obesity, unspecified; Z68.37 Body mass index [BMI] 37.0-37.9, adult; Z87.891 Personal history of nicotine dependence
CPT/HCPCS: 73720; 80048; 80053; 80202; 83735; 84100; 85025; 87081; 93970